=== PATIENT | male | born 1985 | race Caucasian/White ===

== ENCOUNTER 2017-02-15 16:28 | Emergency (ER) | payer OTHER ==
[~2017-02-15] VITALS: Ht 177.8 cm; Wt 103.8 kg
[2017-02-15 17:18] LABS: HEMATOCRIT 48.4 % (39.2-51.8); HEMOGLOBIN 16.4 g/dL (13.7-18.0); WHITE BLOOD COUNT 5.6 x10^3/uL (3.4-10)
[2017-02-15 17:30] LABS: ASPARTATE AMINO TRANSFERASE 29 U/L (15-37); BLOOD UREA NITROGEN 18 mg/dL (7-18)
[2017-02-15 19:30] VITALS: BP 127/69
[2017-02-15] MEDS ORDERED: OMNIPAQUE 350 MG/ML, 100ML BOTTLE ONE (19:30)
== END 2017-02-15 20:56 | disposition home or self-care (01) ==
LOC: ED 18:12
DX: K92.1 Melena (principal)
CPT/HCPCS: 36415; 74177; 80053; 85025; 85610; 85730; 99285; Q9967

== ENCOUNTER 2018-02-10 17:56 | Emergency (ER) | payer OTHER ==
[~2018-02-10] VITALS: Ht 177.8 cm; Wt 90.0 kg
[2018-02-10 18:04] VITALS: BP 142/78
[2018-02-10] MEDS ORDERED: OLAN10TA3 PO (18:11)
[2018-02-10] MEDS ORDERED: ZIPR20CA2 PO (18:11)
[2018-02-10] MEDS ORDERED: OLANZAPINE 10 MG TABLET ONE (18:35)
[2018-02-10] MEDS ORDERED: OLANZAPINE 10 MG TABLET PO ONE (19:00)
== END 2018-02-10 18:51 | disposition home or self-care (01) ==
LOC: ED 18:15
DX: F41.1 Generalized anxiety disorder (principal); F30.11 Manic episode without psychotic symptoms, mild
CPT/HCPCS: 99284

== ENCOUNTER 2018-03-04 08:24 | Observation (INO) | payer MEDICAID, MEDICARE, OTHER ==
[~2018-03-04] VITALS: Ht 177.8 cm; Wt 80.0 kg
[~2018-03-04 08:24] MED LIST: OLAN10TA3 PO; ZIPR20CA2 PO
[2018-03-04] MEDS ORDERED: ASEN10TA9 SL (08:48)
[2018-03-04] MEDS ORDERED: LORazepam 1MG TABLET ONE (08:59)
[2018-03-04] MEDS ORDERED: LORazepam 1MG TABLET PO ONE (09:00)
[2018-03-04] MEDS ORDERED: BACITRACIN ZINC OINT 500U/GM, 0.9 GM ONE (09:19)
[2018-03-04 09:28] LABS: BASOPHILS # (AUTO) 0.02 x10^3/uL (0-0.1); BASOPHILS % (AUTO) 0 % (0-1); EOSINOPHILS # (AUTO) 0.02 x10^3/uL (0-0.4); EOSINOPHILS % (AUTO) 0 % (1-7); LYMPHOCYTES # (AUTO) 1.45 x10^3/uL (1-3.4); LYMPHOCYTES % (AUTO) 19 % (22-44); MD NO; MEAN CORPUSCULAR HEMOGLOBIN 29.9 pg (27.5-34.5); MEAN CORPUSCULAR HGB CONC 34.2 g/dL (33.2-36.2); MEAN CORPUSCULAR VOLUME 87.5 fL (81-97); MEAN PLATELET VOLUME 7.3 fL (7.4-10.4); MONOCYTES # (AUTO) 0.51 x10^3/uL (0.2-0.8); MONOCYTES % (AUTO) 7 % (2-9); NEUTROPHILS % (AUTO) 74 % (42-75); PLATELET COUNT 249 x10^3/uL (130-400); RED BLOOD COUNT 5.35 x10^6/uL (4.38-5.82); RED CELL DISTRIBUTION WIDTH 13.3 % (9.4-14.8)
[2018-03-04 09:35] LABS: CHLORIDE 104 mmol/L (98-107)
[2018-03-04 09:41] LABS: CALCIUM 8.9 mg/dL (8.5-10.1)
[2018-03-04 09:46] LABS: ACETAMINOPHEN < 2 mcg/mL (10-30); ALBUMIN 4.2 g/dL (3.4-5.0); ANION GAP 9 mmol/L (5-15); CREATININE 0.87 mg/dL (0.7-1.3); SALICYLATE LEVEL < 1.7 mg/dL (2.8-20.0)
[2018-03-04 10:46] LABS: AMPHETAMINE SCREEN, URINE Negative (Negative); BARBITURATE SCREEN, URINE Negative (Negative); BENZODIAZEPINE SCREEN, URINE Negative (Negative); CANNABINOID SCREEN, URINE Negative (Negative); COCAINE SCREEN, URINE Negative (Negative); METHADONE SCREEN, URINE Negative (Negative); OPIATE SCREEN, URINE Negative (Negative)
[2018-03-04] MEDS ORDERED: BISACODYL 10 MG SUPP PR PRN (13:30)
[2018-03-04] MEDS ORDERED: DOCUSATE 100 MG CAPSULE PO PRN (13:30)
[2018-03-04] MEDS ORDERED: POLYETHYLENE GLYCOL 17 GM PACKET PO PRN (13:30)
[2018-03-04] MEDS ORDERED: BUPR200T2 PO (15:29)
[2018-03-04] MEDS ORDERED: GLUT500T3 PO (15:29)
[2018-03-04] MEDS ORDERED: OMEG-170 PO (15:29)
[2018-03-04] MEDS ORDERED: ZIPR20CA2 PO (15:29)
[2018-03-04] MEDS ORDERED: OLAN5TAB3 PO (15:29)
[2018-03-04] MEDS ORDERED: LORazepam 2 MG/ML, 1ML IVPush PRN (15:30)
[2018-03-04] MEDS ORDERED: LORazepam 0.5MG TABLET ONE (15:36)
[2018-03-04] MEDS: LORazepam 0.5MG TABLET PO PRN (15:40)
[2018-03-04 17:07] LABS: HEMOGLOBIN A1C 5.6 % (4.2-6.3)
[2018-03-04] MEDS ORDERED: ZIPRASIDONE 20MG CAPSULE ONE (19:10)
[2018-03-04] MEDS ORDERED: ZIPRASIDONE 40MG CAPSULE PO SCH (21:00)
[2018-03-04 22:53] VITALS: BP 105/68
[2018-03-05 08:30] VITALS: BP 109/69
[2018-03-05] MEDS ORDERED: THIAMINE 100MG TABLET ONE (08:50)
[2018-03-05] MEDS: THIAMINE 50MG TABLET PO SCH (09:00)
[2018-03-05] MEDS ORDERED: OMEGA-3/FISH OIL CAPSULE PO SCH (10:00)
[2018-03-05] MEDS: OMEGA-3/FISH OIL CAPSULE PO SCH (11:00)
[2018-03-05] MEDS ORDERED: ZIPR80CA2 PO (15:17)
[2018-03-05 19:47] VITALS: BP 106/69
[2018-03-05] MEDS: ZIPRASIDONE 40MG CAPSULE PO SCH (21:03)
[2018-03-06] MEDS: LORazepam 0.5MG TABLET PO PRN (04:00)
[2018-03-06] MEDS: OMEGA-3/FISH OIL CAPSULE PO SCH (08:27)
[2018-03-06] MEDS: THIAMINE 50MG TABLET PO SCH (08:27)
[2018-03-06 08:43] VITALS: BP 116/75
[2018-03-06 19:11] VITALS: BP 143/74
[2018-03-06] MEDS: ZIPRASIDONE 40MG CAPSULE PO SCH (21:00)
[2018-03-07] MEDS: ACETAMINOPHEN 325 MG TABLET PO PRN (00:49)
[2018-03-07 07:50] VITALS: BP 110/74
[2018-03-07] MEDS: THIAMINE 50MG TABLET PO SCH (08:53)
[2018-03-07] MEDS: OMEGA-3/FISH OIL CAPSULE PO SCH (09:05)
[2018-03-07 19:46] VITALS: BP 117/74
[2018-03-07] MEDS: MIRTAZAPINE 15 MG TABLET PO SCH (21:00)
[2018-03-07] MEDS: ZIPRASIDONE 20MG CAPSULE PO SCH (21:57)
[2018-03-08] MEDS: ACETAMINOPHEN 325 MG TABLET PO PRN (00:22)
[2018-03-08] MEDS ORDERED: MIRTAZAPINE 15 MG TABLET PO ONE (01:30)
[2018-03-08 08:14] VITALS: BP 117/79
[2018-03-08] MEDS: OMEGA-3/FISH OIL CAPSULE PO SCH (08:22)
[2018-03-08] MEDS: ZIPRASIDONE 20MG CAPSULE PO SCH ×2 (08:30→21:49)
[2018-03-08] MEDS: THIAMINE 50MG TABLET PO SCH (08:30)
[2018-03-08 20:03] VITALS: BP 128/79
[2018-03-08] MEDS: MIRTAZAPINE 15 MG TABLET PO SCH (22:16)
[2018-03-09 08:15] VITALS: BP 136/81
[2018-03-09] MEDS: OMEGA-3/FISH OIL CAPSULE PO SCH (08:18)
[2018-03-09] MEDS: THIAMINE 50MG TABLET PO SCH (08:18)
[2018-03-09] MEDS: ZIPRASIDONE 20MG CAPSULE PO SCH ×2 (08:18→22:00)
[2018-03-09 19:20] VITALS: BP 119/80
[2018-03-09] MEDS: MIRTAZAPINE 15 MG TABLET PO SCH (22:00)
[2018-03-10] MEDS: LORazepam 0.5MG TABLET PO PRN ×2 (02:45→11:47)
[2018-03-10] MEDS: ACETAMINOPHEN 325 MG TABLET PO PRN (02:45)
[2018-03-10 08:15] VITALS: BP 117/74
[2018-03-10] MEDS: THIAMINE 50MG TABLET PO SCH (08:29)
[2018-03-10] MEDS: ZIPRASIDONE 20MG CAPSULE PO SCH ×2 (08:29→20:54)
[2018-03-10] MEDS: OMEGA-3/FISH OIL CAPSULE PO SCH (08:30)
[2018-03-10] MEDS ORDERED: ZIPRASIDONE 20MG CAPSULE PO ONE (15:00)
[2018-03-10 19:48] VITALS: BP 126/75
[2018-03-11 07:35] VITALS: BP 121/81
[2018-03-11] MEDS: THIAMINE 50MG TABLET PO SCH (08:20)
[2018-03-11] MEDS: ZIPRASIDONE 20MG CAPSULE PO SCH (08:20)
[2018-03-11] MEDS: OMEGA-3/FISH OIL CAPSULE PO SCH (08:21)
[2018-03-11] MEDS: ACETAMINOPHEN 325 MG TABLET PO PRN ×2 (10:11→20:10)
[2018-03-11] MEDS ORDERED: ZIPRASIDONE 20MG CAPSULE PO SCH (17:00)
[2018-03-11 19:37] VITALS: BP 136/74
[2018-03-11] MEDS: LORazepam 0.5MG TABLET PO PRN (20:43)
[2018-03-12] MEDS: LORazepam 0.5MG TABLET PO PRN (02:16)
[2018-03-12 07:47] VITALS: BP 120/70
[2018-03-12] MEDS: OMEGA-3/FISH OIL CAPSULE PO SCH (09:00)
[2018-03-12] MEDS: THIAMINE 50MG TABLET PO SCH (09:00)
[2018-03-12] MEDS ORDERED: ZIPR20CA2 PO (10:26)
[2018-03-12] MEDS ORDERED: ZIPR40CA2 PO (10:26)
[2018-03-12] MEDS ORDERED: ZIPRASIDONE 20MG CAPSULE PO SCH (12:00)
[2018-03-12] MEDS ORDERED: ZIPRASIDONE 40MG CAPSULE PO SCH (21:00)
== END 2018-03-12 10:44 | disposition home or self-care (01) ==
LOC: ED 08:39 → EDIP 12:59 → 2N 22:41
PROVIDERS: ADMIT Hospitalist; ATTEND Hospitalist
DX: F30.2 Manic episode, severe with psychotic symptoms (principal); F41.1 Generalized anxiety disorder; R73.03 Prediabetes; G89.29 Other chronic pain; M54.9 Dorsalgia, unspecified; F23 Brief psychotic disorder; G47.00 Insomnia, unspecified; Z81.8 Family history of other mental and behavioral disorders; Z91.14 Patient's other noncompliance with medication regimen
CPT/HCPCS: 36415; 80048; 80307; 80329; 82040; 83036; 85025; 93005; 99285; G0378; G0480